=== PATIENT | male | born 1990 | race Caucasian/White ===

== ENCOUNTER 2017-05-08 22:53 | Emergency (ER) | payer BC ==
[~2017-05-08] VITALS: Ht 182.9 cm; Wt 93.0 kg
[2017-05-08] MEDS ORDERED: COLCHICINE (23:07)
--- NOTE | 2017-05-09 00:29 | NUR ---
Patient discharged to home in stable conditon. Written and verbal after care instructions given. Patient verbalizes understanding of instructions.
[2017-05-09 00:30] VITALS: BP 113/60
== END 2017-05-09 00:31 | disposition home or self-care (01) ==
LOC: ER 23:28
DX: M79.671 Pain in right foot (principal); M10.9 Gout, unspecified
CPT/HCPCS: 73630; A4663